=== PATIENT | male | born 1995 | race Asian ===

== ENCOUNTER 2021-02-22 16:21 | Emergency (ER) | payer OTHER ==
[~2021-02-22] VITALS: Ht 172.7 cm; Wt 91.0 kg
[2021-02-22] MEDS ORDERED: IBUPROFEN 800MG TABLET PO ONE (18:15)
[2021-02-22] MEDS ORDERED: METHOCARBAMOL 500MG TABLET PO ONE (18:15)
[2021-02-22] MEDS ORDERED: HYDROCODONE/ACETAMINOPHEN 5/325MG TABLET PO ONE (18:15)
[2021-02-22] MEDS ORDERED: HYDR-4346 MT (21:36)
[2021-02-22] MEDS ORDERED: METH-653 MT (21:36)
[2021-02-22 21:55] VITALS: BP 135/89
[2021-02-23] MEDS ORDERED: IBUP-2029 MT (23:32)
[2021-02-24] MEDS ORDERED: HYDR-4346 PO (06:35)
== END 2021-02-22 21:58 | disposition home or self-care (01) ==
LOC: ER 16:21
DX: M54.5 Low back pain (principal); Z91.040 Latex allergy status
CPT/HCPCS: 72040; 72100; 76870; 93976; 99285